=== PATIENT | male | born 1955 | race Caucasian/White ===

== ENCOUNTER → 2020-10-09 | Day surgery (SDC) | payer MEDICARE, OTHER ==
[~2020-10-09] MED LIST: Ketamine 200 MG/20 ML MDV ONE; Lactated Ringers 1,000 ML IV SCH; Lidocaine 2% 5 ML SDV ONE; Propofol 200 MG/20 ML SDV ONE
[2020-10-09 09:54] VITALS: BP 145/69; PULSE 76
--- NOTE | 2020-10-12 08:13 | OR ---
DATE OF OPERATION: PREOPERATIVE DIAGNOSIS: HISTORY OF POLYPS. POSTOPERATIVE DIAGNOSIS: HISTORY OF POLYPS. SURGEON: Drew Marti MD PROCEDURE: DIAGNOSTIC COLONOSCOPY. ANESTHESIA: MAC. COMPLICATIONS: None. SPECIMEN: None. FINDINGS: 1. Full-length diagnostic colonoscopy. 2. Minimal sigmoid diverticulosis. RECOMMENDATIONS: Followup colonoscopy in 10 years. INDICATIONS: The patient is being seen for surveillance scope. He had a prior colonoscopy 5 years ago with 1 small tubular adenoma removed. He is due for a 5 year followup. DESCRIPTION OF PROCEDURE: The patient was prepped and draped, placed in the left lateral decubitus position. A lubricated Olympus colonoscope was inserted and with ease advanced to the cecum. Direct visualization of ileocecal valve and appendiceal orifice was accomplished. The bowel prep was adequate. Upon withdrawal of the scope throughout the entire length of the colon, I could find no polyps, masses, ulceration, or bleeding sites. No vascular abnormalities or signs of colitis. He had few scattered diverticula in the sigmoid area but very minimal in severity. The rectal vault was benign. Retroflexion of scope in the rectum showed no anal lesions. Air was suctioned. Scope removed without complication. YOGI/MUKUND /[id number]
== END ==
LOC: CC.SDS 08:07
PROVIDERS: ATTEND Family Medicine
DX: Z12.11 Encounter for screening for malignant neoplasm of colon (principal); K57.30 Diverticulosis of large intestine without perforation or abscess without bleeding; Z86.010 Personal history of colon polyps; R73.9 Hyperglycemia, unspecified; R53.83 Other fatigue; R03.0 Elevated blood-pressure reading, without diagnosis of hypertension; R39.12 Poor urinary stream; L71.9 Rosacea, unspecified
CPT/HCPCS: 00812; J2704; J7120